=== PATIENT | female | born 1950 | race Caucasian/White ===

== ENCOUNTER 2017-06-03 21:02 | Emergency (ER) | payer MEDICARE, BC ==
[2017-06-03] MEDS ORDERED: KETOROLAC TROMETHAMINE 30 MG/ML VIAL ONE (21:56)
[2017-06-03] MEDS ORDERED: METOCLOPRAMIDE HCL 10 MG/2 ML VIAL ONE (21:56)
--- NOTE | 2017-06-03 22:52 | ER PHYSICIAN DOCUMENTATION ---
Physician Documentation [facility] Name:Miranda Ozuna Age:66 yrs Sex:Female :1950 Arrival Date:06/03/2017 Time:21:02 Bed5 Private MD: Baldo Henning Disposition: 06/03/17 21:46 Discharged to Home/Self Care. Impression: Lumbar Radiculopathy. - Condition is Good. - Discharge Instructions: LUMBAR RADICULOPATHY - BACK PAIN w/ SCIATICA. - Prescriptions for Tramadol 50 mg Oral - take 1 tablet by ORAL route every 8 hours as needed; 15 tablet. - Medical Reconciliation form form. - Follow up: Private Physician; When: As needed; Reason: Recheck today's complaints, Continuance of care. - Problem is new. - Symptoms have improved. HPI: 06/03 21:50 This 66 yrs old Female presents to ER via Private Vehicle with complaints of be Back Pain. 21:50 The patient presents with pain that is acute, and an injury, riding horse last weekend, be now having right lumbar radicular pain. Onset: The symptoms/episode began/occurred today. Associated signs and symptoms: Pertinent positives: none Pertinent negatives: incontinence, numbness, tingling, urinary retention, weakness. The risk factors for risk of a malignancy are: The patient has a history of cancer. Historical: - Allergies: Aspirin; - Home Meds: 1. Keppra Oral - PMHx: SEIZURES; HIGH CHOLESTEROL; CANCER; brain tumor ; cancer of the mouth; bone spur; - PSHx: multible bone fractures; - Tetanus: < 10 years. - Ebola Screening: : No symptoms or risks identified at this time. . - Immunization history: Pneumococcal vaccine status is unknown. - Social history: Smoking status: Patient states was never smoker of tobacco. ROS: 21:52 Back: Positive for injury or acute deformity, pain with movement, radiated pain. be 21:52 All other systems are negative. Exam: 21:52 Constitutional: This is a well developed, well nourished patient who is awake, alert, be and in no acute distress. 21:52 Back: pain, that is mild, ROM is painful. 21:52 Neuro: Sensation: is normal, no obvious gross deficits, Gait: limited by pain, Deep tendon reflexes are normal. Vital Signs: 21:34 BP 146 / 77; Pulse 72; Resp 18; Temp 98.0; Pulse Ox 96% ; Weight 59.87 kg; Height 5 ft. mv 5 in. (165.10 cm); Pain 2/10; 22:51 BP 135 / 68; Pulse 62; Resp 20; Pulse Ox 94% on R/A; mv 21:34 Body Mass Index 21.97 (59.87 kg, 165.10 cm) mv MDM: 21:37 Patient medically screened. be 21:53 Differential diagnosis: Fracture Metastatic Disease ruptured disc. Data reviewed: vital be signs, nurses notes, radiologic studies, plain films, and as a result, I will discharge patient, prescribe pain medication, Dilaudid, Toradol, Reglan. 06/05 17:21 Order name: LUMBOSACRAL SPINE 2-3 [id number] EDMS Dispensed Medications: 21:52 Drug: Toradol 30 mg; Route: IM; Site: left gluteus; mv 22:51 Follow up: Response: Pain is decreased nf 21:52 Drug: Dilaudid 1 mg; Route: IM; Site: right gluteus; mv 22:51 Follow up: Response: Pain is decreased nf 21:53 Drug: Reglan 5 mg; Route: IM; Site: left gluteus; mv 22:51 Follow up: Response: No adverse reaction nf Signatures: Baldo Noland MD MD be vogel, margaux mv Friel, Nicole RN nf
--- NOTE | 2017-06-03 22:52 | ER NURSING DOCUMENTATION ---
Nurse's Notes [facility] Name:Miranda Ozuna Age:66 yrs Sex:Female :1950 Arrival Date:06/03/2017 Time:21:02 Bed5 Private MD: Diagnosis:Lumbar Radiculopathy Presentation: 06/03 21:22 Transition of care: patient was not received from another setting of care. Risk nf considerations: patient denies associated abdominal pain and neurologic symptoms. 21:22 Acuity: TIP 4 nf 21:22 Method Of Arrival: Private Vehicle nf 21:29 Presenting complaint: Patient states: hurt her back riding horses last Saturday. has mv had back pain since then started getting shooting pains 3-4 days ago going down R leg has been getting worse since then. Notified ED Physician of patient's arrival and CC Dr. Noland notified. Triage Assessment: 21:32 General: Appears in no apparent distress, Behavior is appropriate for age, cooperative. mv Pain: Complains of pain in right leg. Musculoskeletal: Circulation, motion, and sensation intact Capillary refill Reports shooting pains down R leg. Historical: - Allergies: Aspirin; - Home Meds: 1. Keppra Oral - PMHx: SEIZURES; HIGH CHOLESTEROL; CANCER; brain tumor ; cancer of the mouth; bone spur; - PSHx: multible bone fractures; - Tetanus: < 10 years. - Ebola Screening: : No symptoms or risks identified at this time. . - Immunization history: Pneumococcal vaccine status is unknown. - Social history: Smoking status: Patient states was never smoker of tobacco. Screenin:46 Infectious Disease Risk None. Abuse screen: Denies threats or abuse. Nutritional nf screening: No deficits noted. Assessment: 21:46 Neuro:. nf 21:46 Neuro: Denies numbness in right leg. Musculoskeletal: Circulation, motion, and mv sensation intact Capillary refill < 3 seconds in bilateral toes Reports pain in lumbar area and right leg. Vital Signs: 21:34 BP 146 / 77; Pulse 72; Resp 18; Temp 98.0; Pulse Ox 96% ; Weight 59.87 kg; Height 5 ft. mv 5 in. (165.10 cm); Pain 2/10; 22:51 BP 135 / 68; Pulse 62; Resp 20; Pulse Ox 94% on R/A; mv 21:34 Body Mass Index 21.97 (59.87 kg, 165.10 cm) mv ED Course: 21:18 Patient arrived in ED. jl 21:22 Katia Jones RN is Primary Nurse. nf 21:22 Triage completed. nf 21:35 Notified ED Physician of patient's arrival and chief complaint. Dr. Noland. Arm band mv placed on. 21:36 Baldo Noland MD is Attending Physician. be 21:46 Valuables Remains with patient Adult w/ patient. Pulse Ox - RN Monitoring Only NIBP On nf - RN Monitoring Only. Door closed. Noise minimized. Lights dimmed. Moved to private room. Verbal reassurance given. Warm blanket given. Pillow given. Family accompanied patient. 22:18 Patient moved to radiology. mr 22:29 Patient moved back from radiology. mr Administered Medications: 21:52 Drug: Toradol 30 mg; Route: IM; Site: left gluteus; mv 22:51 Follow up: Response: Pain is decreased nf 21:52 Drug: Dilaudid 1 mg; Route: IM; Site: right gluteus; mv 22:51 Follow up: Response: Pain is decreased nf 21:53 Drug: Reglan 5 mg; Route: IM; Site: left gluteus; mv 22:51 Follow up: Response: No adverse reaction nf Outcome: 21:46 Discharge ordered by . be 22:51 Discharged to home mv 22:51 Condition: improved 22:51 Discharge Assessment: Patient awake, alert and oriented x 3. No cognitive and/or functional deficits noted. Patient verbalized understanding of disposition instructions. 22:51 Discharge instructions given to patient, Instructed on discharge instructions, follow up and referral plans. medication usage. 22:52 Patient left the ED. mv 07 12:11 Discharge F/U Call: Unable to reach: no answer Signatures: Katia Jones, LYNNE RN Baldo Noland MD MD be Hofsess, Rachel rm strange Michael mr Lietz, Spike villalpando
--- NOTE | 2017-06-05 11:17 | RADIOLOGY REPORT ---
Three views of the lumbar spine demonstrate no displaced fracture or subluxation. Marked degenerative disk disease is seen at L3-4 and L5-S1. Disk spaces otherwise appear unremarkable. IMPRESSION: Marked degenerative disk disease at L3-4 and L5-S1. MTDD
== END 2017-06-03 22:52 | disposition home or self-care (01) ==
LOC: ER 21:02
DX: M54.16 Radiculopathy, lumbar region (principal); Z85.89 Personal history of malignant neoplasm of other organs and systems; Z79.899 Other long term (current) drug therapy
CPT/HCPCS: 72100; 96372; 99283; J1170; J1885; J2765